=== PATIENT | male | born 1990 | race Caucasian/White ===

== ENCOUNTER 2025-01-31 00:01 | Emergency (ER) | payer BC, SELFPAY ==
[2025-01-31 00:03] VITALS: BP 144/94
[2025-01-31 00:41] VITALS: BP 154/72
[2025-01-31 00:42] VITALS: BMI 36.9
[2025-01-31 01:00] VITALS: BP 114/57
[2025-01-31 02:00] VITALS: BP 116/71
--- NOTE | 2025-01-31 04:01 | ED.GENMED ---
History of Present Illness
General
Chief Complaint: Throat Problem
Source: patient
Exam Limitations: none
Time Seen by Provider: 01/31/25 01:11
Nursing documentation reviewed up to this point in time: agreed with
History of Present Illness
History of Present Illness:
Patient is a 34-year-old healthy male who presents to the emergency department for evaluation of a foreign body sensation in his throat. Patient states throughout the day today he noticed a sensation that something was stuck on the right side of
his throat. This feeling persisted throughout the day and into the evening. He denies any true pain in the throat. He has absolutely no difficulty swallowing, difficulty breathing or shortness of breath. He denies any fever or chills. He denies
any other URI symptoms including fever, cough, ear pain, nasal congestion. He denies any recent falls or trauma. He denies any rash.
Patient denies any history of similar symptoms.
Past History
Past History
ED Past Medical History: None
ED Past Surgical History: None
Social History
Tobacco: Non-smoker
Alcohol: None
Living: with family
Review of Systems
Review of Systems
Allergies reviewed?: Yes
All Other Systems: ROS reviewed and negative except as documented in HPI and ROS
Phy Exam
Physical Exam
Physical Exam:
Vitals: Hypertensive, otherwise vital signs are stable. Afebrile
General: Patient is well appearing, no acute distress
Skin: Warm and dry, no rashes or lesions
Head: Normocephalic, atraumatic
Throat: Very mild pharyngeal erythema. No tonsillar edema or exudates. Possible visualized tonsillolith noted in right tonsillar area. Uvula midline without deviation. Handling oral secretions. Protecting airway
Neck: Normal ROM, no cervical spine tenderness. No erythema or tenderness of neck. No palpable lymphadenopathy.
Cardiac: Regular rate
Pulm: No apparent respiratory distress. Lungs clear bilaterally
Abdomen: Nondistended
Extremities: No evidence of cyanosis or edema
Neuro: Grossly intact
Psychiatric: Normal affect.
Course
Orders/Labs/Results
Orders:
Orders
01/31/25 01:25
Neck Soft Tissue [CR Soft Tissue Neck ] Urgent
Comment:
Reason For Exam: foreign body sensation in throat
Vital Signs
Initial and Last Documented VS:
Initial Vital Signs
Temp Pulse Resp BP Pulse Ox
98.1 F 86 20 144/94 98
01/31/25 00:03 01/31/25 00:03 01/31/25 00:03 01/31/25 00:03 01/31/25 00:03
Last Documented Vital Signs
Temp Pulse Resp BP Pulse Ox
98.1 F 86 20 116/71 99
01/31/25 00:03 01/31/25 00:03 01/31/25 00:03 01/31/25 02:00 01/31/25 04:07
MDM/Problems Addressed
Differential Diagnosis Includes:
Not limited to: Pharyngitis, globus sensation, tonsillolith, peritonsillar abscess, foreign body, etc.
MDM/Problems Addressed:
34-year-old male presenting with foreign body sensation in right throat which started today. No fevers or URI symptoms. No dysphasia, shortness of breath or difficulty breathing. Patient has stable vital signs. He is not hypoxic. On exam, patient
very well appearing, in no apparent distress. Cardio/pulmonary assessment unremarkable. He has no erythema of neck or palpable lymphadenopathy. Posterior pharynx midlly erythematous with possible partially visualized tonsilith. No tonsillar edema or
exudates. No evidence of pharyngitis. No SALES OFFICE ASSISTANT or uvular swelling. No visualized foreign body. He is handling oral secretions and protecting airway.
Differential broad. Do not suspect infectious process based on exam and lack of infectious symptoms. No evidence of SALES OFFICE ASSISTANT on exam. He is in no respiratory distress and is tolerating food/liquid by mouth without suspicion for esophageal ideology.
Offered rapid strep test, however, patient declines. Will check lateral soft tissue neck, x-ray and reassess.
Update: lateral neck xray reviewed by me without any acute findings. Patient remains extremely well appearing, in no distress. Unclear exact etiology of presenting symptoms however very low suspicion for an infectious process. No indication for
admission. Possible tonsilith vs globus sensation. Recommended salt water gargle, close monitoring at home, and primary care follow up. Provided follow up information for ENT if needed in the future. Very strict return precautions discussed. Patient
is comfortable with plan.
Chronic conditions affecting care:
N/A
Acute Exacerbation and/or Progression of Chronic Illness:
N/A
*Radiology
Radiology exam reviewed: preliminary read by ED provider (Soft tissue neck x-ray reviewed by me-no acute findings)
*Pulse Oximetry
SaO2: 99
Oxygen Mode of Delivery: Room air
Patient hypoxic: no
*EKG
Interpreted by ED Provider?: NA
*Pantry Worker Interpretation
Rate: Pantry Worker- N/A
*Critical Care Note
Total Time (30-74mins, 75-104mins- exclusive of procedures): Not Applicable
ED Attending Note
-
Portions of this chart may have been created with voice recognition software.� Occasional wrong word or��sound alike� substitutions may have occurred due to the inherent limitations of voice recognition software.
Discharge Plan
Departure
Patient Disposition: Home (Routine Discharge)
Date of Disposition: 01/31/25
Time of Disposition: 02:57
Patient with high blood pressure during this ER visit?: Yes
Condition: Good
Discharge Problem:
Foreign body sensation, throat
Instructions: BLOOD PRESSURE
Prescriptions:
No Action
oxycodone-acetaminophen 5 MG/325 MG tablet
1 tab PO Q6HPRN PRN (Reason: pain) Qty: 14 0RF
diclofenac potassium 50 MG tablet
50 mg PO BID Qty: 20 0RF
Referrals:
Dubiel,Kayleen, PA-C [Family Provider, Internal Medicine]
Russ Olmos MD [Active, Otology] - As needed
Activity Restrictions/Additional Instructions:
RETURN TO THE EMERGENCY DEPARTMENT WITH ANY PERSISTENT/WORSENING THROAT PAIN OR DISCOMFORT, ANY DIFFICULTY BREATHING OR DIFFICULTY SWALLOWING, FEVERS, NECK PAIN OR REDNESS, WORSENING CURRENT SYMPTOMS, OR ANY OTHER CONCERNS
- You came to the emergency department today with concern of a foreign body sensation in your throat. There is no evidence of infection on your exam. I did not notice any abnormalities on your x-ray. Your symptoms may be due to tonsil stones.
- I would recommend warm salt water gargles, Motrin for pain.
- Follow-up with primary care/ENT for further evaluation/management and to ensure that symptoms improve
Monitor symptoms closely return to the emergency department any acute worsening/new symptoms or any signs of infection
Interventions
Interventions:
*Risk Screen - Suicide Last Done: 01/31/25 00:03
*General Assessment Last Done: 01/31/25 00:42
*Neglect/Abuse Screening Last Done: 01/31/25 00:03
*ED- Fall Risk Assessment Last Done: 01/31/25 00:42
*ED COVID-19 Vaccine History Last Done: 01/31/25 00:42
*Nursing Disposition Last Done: 01/31/25 03:04
ED-EENT Assessment Last Done: 01/31/25 00:42
ED- Pulmonary Assessment Last Done: 01/31/25 00:42
Discharge Date and Time
Discharge Date/Time: 01/31/25 03:06
Print Language: MALAY
== END 2025-01-31 03:06 | disposition home or self-care (01) ==
LOC: EMR 00:01
PROVIDERS: EMERGENCY PHYSICIAN Emergency Medicine; FAMILY PHYSICIAN Physician Assistant
DX: R09.A2 Foreign body sensation, throat (principal)
CPT/HCPCS: 99283; 70360